=== PATIENT | male | born 1980 | race Caucasian/White ===

== ENCOUNTER 2019-08-28 01:45 | Emergency (ER) | payer OTHER, MEDICAID, SELFPAY ==
--- NOTE | 2019-08-28 01:51 | ED_ITS ---
HPI - Extremity Problem General Chief complaint: Extremity Injury, Lower Stated complaint: redness and swelling in both feet Time Seen by Provider: 08/28/19 01:50 Source: patient Mode of arrival: Ambulatory Limitations: no limitations History of Present Illness HPI Narrative: This is a 38-year-old male comes to the emergency department complaint of redness and swelling in both his feet. He states it started about 3 or 4 days ago. 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 He states since then he has had a little bit of redness, some swelling on the sides. Patient denies any fevers chills. No chest pain, no shortness of breath. No swelling of his legs. He states that some they have been little bit irritated. He states that the redness seems to be where he was having abrasion from his boots. Does have a history cardiomegaly. He states that it was found while he was in the he has never had any intervention or needed any treatment. He is followed for it regularly. He states they think it is because he was very active as a young child. He denies any surgeries besides a vasectomy. Denies any allergies. He does smoke tobacco, denies illicit or alcohol. Related Data Home Medications Medication Instructions Recorded Confirmed . (No Home Medications) 0 #0 12/25/09 Review of Systems Review of Systems ROS Unobtainable: All systems reviewed & are unremarkable except as noted in HPI and below Patient History Social History Smoking Status: Current every day smoker Exam Narrative Exam Narrative: GENERAL: Alert and oriented x three, well-nourished, well- appearing male in no acute distress. HEENT: Head normocephalic, atraumatic, EOMI, pupils reactive, face symmetric, moist mucous membranes NECK: Supple, full range of motion CARDIOVASCULAR: Regular rate and rhythm without murmurs, rubs or gallops. RESPIRATORY: Breath sounds equal bilaterally, no wheezes rales or rhonchi. ABDOMEN: Soft, nontender. Normoactive bowel sounds all 4 quadrants. No guarding or rebound, rigidity, no mass : No CVA tenderness EXTREMITIES: Normal range of motion, no clubbing. Patient has some abrasions and erythema along the ankles and bony prominences of his feet that seemed consistent with wear his boot would rub there is no warmth. There is no disseminated redness or rash noted. Patient has normal sensation. He does appear to have a little bit of hyperkeratotic skin on the bottom of the feet. Neurovascularly intact NEUROLOGICAL: Cranial nerves II through XII grossly intact. Moving all extremities SKIN: Warm, dry, no petechiae, no rashes or lesions. Initial Vital Signs Initial Vital Signs: Vital Signs Temperature 98.2 F 08/28/19 01:58 Pulse Rate 91 H 08/28/19 01:58 Respiratory Rate 18 08/28/19 01:58 Blood Pressure 134/82 08/28/19 01:58 Pulse Oximetry 99 08/28/19 01:58 Course Vital Signs Vital signs: Vital Signs - 8 hr 08/28/19 01:58 Temperature 98.2 F Pulse Rate 91 H Respiratory Rate 18 Blood Pressure 134/82 Pulse Oximetry 99 MDM - Extremity (Nontraumatic) MDM Narrative Medical decision making narrative: Discussed with patient I suspect that the skin changes are secondary to wearing his shoes and properly. Did discuss he has a history of cardiomegaly and if he would like to do further workup for evaluation for the swelling in his feet. Patient defers and states he feels comfortable returning home. He has ibuprofen and Tylenol at home. We discussed ways to prevent any worsening symptoms and reasons to return emergently. Discharge Plan Departure Patient Disposition: Home Clinical Impression: Swollen feet Discharge Date/Time: 08/28/19 02:15 Activity Restrictions/Additional Instructions: Make sure that you keep your shoes are laced, do not walk-in them loose for long periods of time. I would recommend wearing tennis shoes or flip-flops or a different type of shoe for the next several days to let her feet healed Keep your feet clean and dry You may take Tylenol and/or ibuprofen for pain. Return if there is increasing redness, swelling, if swelling is running up her legs, redness is spreading, if you are having fevers greater 100.4 F, new numbness, weakness, shortness of breath, chest pain or pressure, persistent vomiting or other new or concerning symptoms. Prescriptions: No Action . (No Home Medications) 0 Qty: 0 RF: 0
[2019-08-28 01:58] VITALS: BP 134/82; PULSE 91; RESP 18; TEMP 36.8; O2SAT 99; BMI 27.1
== END 2019-08-28 02:15 | disposition home or self-care (01) ==
PROVIDERS: Emergency Provider Emergency Medicine
DX: M79.89 Other specified soft tissue disorders (principal)
CPT/HCPCS: 99282

== ENCOUNTER 2020-02-27 00:47 | Emergency (ER) | payer OTHER, MEDICAID, SELFPAY ==
[2020-02-27 00:53] VITALS: BP 140/82; PULSE 95; RESP 16; TEMP 36.3; O2SAT 99; BMI 24.3
--- NOTE | 2020-02-27 00:57 | DI.RAD.S_ITS ---
PROCEDURE: XR FOOT LT MIN 3V INDICATIONS: open wounds, suspect infection TECHNIQUE: 3 views of the foot were acquired. COMPARISON: None. FINDINGS: Bones: No fractures or dislocations. No discrete bony erosions or periosteal reaction. There is a mild hallux valgus. No suspicious bony lesions. Soft tissues: No tibiotalar joint effusion. Achilles tendon appears normal. IMPRESSION: 1. No definite radiographic evidence of osteomyelitis. 2. Mild hallux valgus. Dictated by: Cornell Lagos M.D. on 02/27/2020 at 9:39 Approved by: Cornell Lagos M.D. on 02/27/2020 at 9:41
--- NOTE | 2020-02-27 01:04 | ED.SKABFB ---
HPI - Skin/Abscess/Foreign Bdy General Chief complaint: Skin/Abscess/Foreign Body Stated complaint: lump on left leg Time Seen by Provider: 02/27/20 00:48 Source: patient Mode of arrival: Ambulatory Limitations: no limitations History of Present Illness HPI narrative: 39M smoker without significant medical history presents with a painful bump overlying his left fowler in the absence of injury. He states that it flared up over the course of the past 2 days or so. He denies systemic complaints such as fever, chills, nausea, or vomiting. He states he also has an open sore underlying the toes of his left foot and states that he's had this off and on for many years and has been treated for athletes foot or trench foot. Related Data Home Medications Medication Instructions Recorded Confirmed . (No Home Medications) 0 #0 12/25/09 Previous Rx's Medication Instructions Recorded doxycycline hyclate 100 mg PO BID #20 tab 02/27/20 Allergies Allergy/AdvReac Type Severity Reaction Status Date / Time No Known Drug Allergies Allergy Verified 02/27/20 00:56 Review of Systems Constitutional Constitutional: Denies chills, Denies fatigue, Denies fever(s), Denies frequent falls, Denies lethargy and Denies weakness Eyes Eyes: Denies change in vision, Denies eye discharge, Denies irritation and Denies loss of vision ENT Ears, Nose, Mouth, and Throat: Denies change in voice, Denies dizziness, Denies neck pain, Denies sore throat and Denies throat swelling Cardiovascular Cardiovascular: Denies chest pain, Denies irregular heart rhythm, Denies lightheadedness, Denies palpitations, Denies dyspnea, Denies dyspnea on exertion and Denies orthopnea Respiratory Respiratory: Denies cough, Denies dyspnea, Denies dyspnea on exertion and Denies wheezing Gastrointestinal Gastrointestinal: Denies abdominal pain, Denies change in bowel habits, Denies diarrhea, Denies nausea and Denies vomiting Musculoskeletal Musculoskeletal: Denies neck pain and Denies numbness Integumentary/Breasts Skin/Breast: Denies pruritus, Reports erythema, Denies rash, Reports skin pain, Reports skin swelling, Reports sores and Reports wounds Neurologic Neurologic: Denies behavioral changes, Denies confusion, Denies dizziness, Denies frequent falls, Denies loss of vision, Denies numbness and Denies weakness Psychiatric Psychiatric: Denies anxiety, Denies behavioral changes, Denies confusion, Denies depression, Denies homicidal ideation and Denies suicidal ideation Endocrine Endocrine: Denies fatigue, Denies flushing and Denies palpitations Hematologic/Lymphatic Hematologic/Lymphatic: Denies easy bruising Allergic/Immunologic Allergic/Immunologic: Denies urticaria, Denies throat swelling and Denies wheezing Patient History Social History Smoking Status: Current every day smoker Smoking Status: Current every day smoker tobacco type: cigarettes Substance Use Type: does not use Exam Narrative Exam Narrative: GENERAL: [39] year old patient appears stated age. Well-nourished, well-developed patient, in mild distress. HEAD: Atraumatic. Normocephalic. EYES: Pupils equal round and reactive. Extraocular motions intact. No scleral icterus. No injection or drainage. ENT: Nose without bleeding, purulent drainage. Throat without erythema, tonsillar hypertrophy or exudate. Airway patent. NECK: Trachea midline. Non tender CARDIOVASCULAR: Regular rate and rhythm without murmurs, gallops, or rubs. RESPIRATORY: Clear to auscultation. Breath sounds equal bilaterally. No wheezes, rales, or rhonchi. GASTROINTESTINAL: Abdomen soft, non-tender, nondistended. EXTREMITIES: Swelling with some redness and tenderness to palpation along anterior fowler of LLE. No significant erythema, no fluctuance, mild induration. No edema or joint tenderness. BACK: Nontender without deformity or crepitance. No flank tenderness. NEURO: AOx3. SKIN: Skin break down on plantar surface of the toes of left foot with moist socks and appearance that foot has been wet for some time. No foul smelling or drainage. No rash or erythema of visible areas Initial Vital Signs Initial Vital Signs: Vital Signs Temperature 97.4 F L 02/27/20 00:53 Pulse Rate 95 H 02/27/20 00:53 Respiratory Rate 16 02/27/20 00:53 Blood Pressure 140/82 02/27/20 00:53 Pulse Oximetry 99 02/27/20 00:53 Procedures Abscess I/D I&D #1: Site: lower extremity Side (if applicable): left Local Anesthetic: lidocaine 1% and with epi Technique: needle aspiration Amount of fluid expressed (mL): 1 Irrigation: No Packing used?: none Course Orders Ordered: ED Orders 02/27/20 00:57 XR foot LT min 3V Stat 02/27/20 01:10 C-Reactive Protein Quant Stat Complete Blood Count AUTO DIFF Stat Erythrocyte Sedimentation Rate Stat Discontinued Medications Hydrocodone Bitart/Acetaminophen (Vicodin 5/325 Prepack) 1 bottle MISC SEEINSTR ONE Stop: 02/27/20 02:04 Doxycycline Hyclate (Vibramycin) 100 mg PO NOW ONE Stop: 02/27/20 02:04 Lidocaine/Epinephrine (Xylocaine 1% W/Epi) 1 ml SUBCUT NOW ONE Stop: 02/27/20 01:53 Vital Signs Vital signs: Vital Signs - 8 hr 02/27/20 00:53 Temperature 97.4 F L Pulse Rate 95 H Respiratory Rate 16 Blood Pressure 140/82 Pulse Oximetry 99 MDM - Skin/Abscess/Foreign Bdy Lab Data Result diagrams: 02/27/20 01:10 Labs: Lab Results 02/27/20 02/27/20 Range/Units 01:10 01:10 WBC 7.0 (4.5-11.0) X10^3/uL RBC 4.46 L (4.5-5.9) X10^6/uL Hgb 13.5 (13.5-17.5) g/dL Hct 39.1 L (41-53) % MCV 87.7 (80-100) fL MCH 30.3 (26-34) PG MCHC 34.6 (30-36) % RDW 12.7 (11.6-14.8) % Plt Count 308 (150-400) X10^3/uL Neut % (Auto) 50.7 (50-75) % Lymph % (Auto) 33.3 (25-40) % [place] % (Auto) 9.2 (3-14) % Eos % (Auto) 6.4 H (2-4) % Baso % (Auto) 0.4 (0-2) % Neut # (Auto) 3500 (7184-9248) /uL Lymph # (Auto) 2300 (5634-3418) /uL [place] # (Auto) 600 (0-900) /uL Eos # (Auto) 400 (0-450) /uL Baso # (Auto) 0 (0-100) /uL ESR 20 H (0-15) MM/HR C-Reactive Protein 0.5 (<1.0) mg/dL Imaging Data Extremity x-ray #1: Attestation: I personally reviewed and interpreted this imaging study as follows: My Impression: NAP Discharge Plan Departure Patient Disposition: Home Clinical Impression: Cellulitis Qualifiers: Site of cellulitis: extremity Site of cellulitis of extremity: lower extremity Laterality: left Qualified Code(s): L03.116 - Cellulitis of left lower limb Abscess of skin or subcutaneous tissue Qualifiers: Site of cutaneous abscess: extremity Site of cutaneous abscess of extremity: lower extremity Laterality: left Qualified Code(s): L02.416 - Cutaneous abscess of left lower limb Instructions: DI for Cellulitis -- Adult, DI for Skin Abscess Activity Restrictions/Additional Instructions: *You have been diagnosed with [left lower extremity cellulitis and possible early abscess] *What to do: *Take medications as directed *Follow up with your primary care provider in 2-3 days, call for an appointment. Let them know you were seen in the Emergency Department and that we ask that you be seen in follow up *Return to ER if you should have any new, worsening or concerning symptoms Prescriptions: New doxycycline hyclate 100 mg tablet 100 mg PO BID Qty: 20 RF: 0 No Action . (No Home Medications) 0 Qty: 0 RF: 0
[2020-02-27 01:30] LABS: Add Manual Diff / Slide Review NO; Basophils Absolute Auto 0 /uL (0-100); Basophils Percent Auto 0.4 % (0-2); Eosinophils Absolute Auto 400 /uL (0-450); Eosinophils Percent Auto 6.4 % (2-4); Hematocrit 39.1 % (41-53); Hemoglobin 13.5 g/dL (13.5-17.5); Lymphocytes Absolute Auto 2300 /uL (1100-4500); Lymphocytes Percent Auto 33.3 % (25-40); Mean Corpuscular HGB Conc 34.6 % (30-36); Mean Corpuscular Hemoglobin 30.3 PG (26-34); Mean Corpuscular Volume 87.7 fL (80-100); Monocytes Absolute Auto 600 /uL (0-900); Monocytes Percent Auto 9.2 % (3-14); Neutrophils Absolute Auto 3500 /uL (1500-7000); Neutrophils Percent Auto 50.7 % (50-75); Platelet Count 308 X10^3/uL (150-400); Red Blood Cell Count 4.46 X10^6/uL (4.5-5.9); Red Cell Distribution Width 12.7 % (11.6-14.8)
[2020-02-27 01:44] LABS: C-Reactive Protein Quant 0.5 mg/dL (<1.0)
[2020-02-27 01:45] LABS: Erythrocyte Sedimentation Rate 20 MM/HR (0-15)
[2020-02-27] MEDS: DOXYCYCLINE HYCLATE 100 MG TABLET PO (02:27)
[2020-02-27] MEDS: HYDROCODONE/ACET 5/325 PREPACK 1 BOTTLE MISC (02:27)
[2020-02-27] MEDS: LIDOCAINE 1% W/EPI 1 ML SUBCUT (02:28)
[2020-02-27 02:34] VITALS: BP 111/60; PULSE 82; RESP 16; O2SAT 98
== END 2020-02-27 02:36 | disposition home or self-care (01) ==
PROVIDERS: Emergency Provider Emergency Medicine
DX: L03.116 Cellulitis of left lower limb (principal); L02.416 Cutaneous abscess of left lower limb
CPT/HCPCS: 10060; 36415; 73630; 85025; 85651; 86140; 99283; 99284